=== PATIENT | female | born 1990 | race Caucasian/White ===

== ENCOUNTER 2018-07-22 15:16 | Outpatient (CLI) | payer BC ==
--- NOTE | 2018-07-22 16:30 | ULT ---
FOCUSED ULTRASOUND OF THE RIGHT BREAST: 07/22/2018 HISTORY: Palpable abnormality felt by the patient's physician, at the 2 o'clock position of the left breast. COMPARISON: None. FINDINGS: Focused ultrasound of the left breast, from the 12 o'clock through the 3 o'clock position, obtained. Of note, the patient is unable to palpate an abnormality at this time. No mass or abnormal shadowin g is seen. IMPRESSION: Unremarkable focused ultrasound of the left breast. Negative imaging should not delay biopsy of a cl inically suspicious abnormality. If an abnormality persists, the skin could be marked, and a follow- up ultrasound could be performed. In addition, if there is an area of high clinical concern, a diagn ostic mammogram could be performed. POS: OFF
== END 2018-07-22 15:17 | disposition home or self-care (01) ==
LOC: BICULT 15:16
PROVIDERS: ATTEND Student in an Organized Health Care Education/Training Program
DX: N63.21 Unspecified lump in the left breast, upper outer quadrant (principal)